=== PATIENT | female | born 1975 | race Caucasian/White ===

== ENCOUNTER 2019-10-27 05:05 | Inpatient (IN) | payer OTHER ==
[2019-10-23 15:05] VITALS: BMI 26.2
[2019-10-27] MEDS ORDERED: VASOPRESSIN 20 UNITS/ML VIAL IV ONE (07:34)
[2019-10-27] MEDS ORDERED: MIDAZOLAM HCL 2 MG/2 ML SINGLE DOSE VIAL ONE ×2 (07:47)
[2019-10-27] MEDS ORDERED: ROPIVACAINE HCL 0.5% 30ML VIAL ONE (07:48)
--- NOTE | 2019-10-27 08:11 | HP ---
Admitting History and Physical - Primary Care Physician PCP: Ramin Ruff - Admission Chief Complaint: for myomectomy with large fibroid History of Present Illness: pelvic ain, menorrhagia History Source: Patient Limitations to Obtaining History: No Limitations - Past Medical History DISC RECORDIST: No: Alzheimer's, CVA, Dementia, Migraine, Multiple Sclerosis, Peripheral Neuropathy, Parkinson's, Seizure, Syncope, TIA, Vertigo, Other Cardiovascular: No: AFIB, Aneurysm, Aortic Insufficiency, Aortic Stenosis, CAD, CHF, Deep Vein Thrombosis, HTN, Hyperlipdemia, PR, Mitral Insufficiency, Mitral Stenosis, Murmur, Pulmonary Hypertension, Other Pulmonary: No: Asthma, Bronchitis, Cancer, COPD, O2 Dependent, Pneumonia, Previously Intubated, Pulmonary Embolus, Pulmonary Fibrosis, Sleep Apnea, Other Gastrointestinal: No: Ascites, Cancer, Constipation, Crohn's Disease, Diverticulitis, Diverticulosis, Esophageal Varices, Gastritis, GERD, GI Bleed, Hemorrhoids, Hiatal Hernia, Inflamatory Bowel Disease, Irritable Bowel Disease, Pancreatitis, Peptic Ulcer Disease, Ulcerative Colitis, Other Hepatobiliary: No: Cirrhosis, Cholelithiasis, Cholecystitis, Choledocholithiasis , Hepatitis A, Hepatitis B, Hepatitis C, Other Renal/: No: Renal Failure, Renal Inusuff, BPH, Cancer, Hematuria, Hemodialysis , Neurogenic Bladder, Renal Calculi, UTI, Other Reproductive: No: Ectopic , Endometriosis, Fibroids, PID, Polycystic Ovary Syndrome, Postmenopausal, Other ...LMP: 10/05/19 ...: No ...Para: 2 Heme/Onc: No: Anemia, B12 Deficiency, Bleeding Disorder, Cancer, Current Chemotherapy, Current Radiation Therapy, Hemochromatosis, Hypercoaguable State, Myeloproliferative Synd, Sickle Cell Disease, Sickle Cell Trait, Thrombocytopenia, Other Infectious Disease: No: AIDS, C-Diff, Herpes Zoster, HIV, MRSA, STD's, Tuberculosis, VREF, Other Psych: No: Addictions, Anxiety, Bipolar, Depression, Panic, Psychosis, Schizophrenia, Other Musculoskeletal: No: Bursitis, Chronic low back pain, Hemiparesis, Hemiplegia, Osteoarthritis, Paraplegia, Other Rheumatology: No: Fibromyalgia, Gout, Lupus, Rheumatoid Arthritis, Sarcoidosis, Vasculitis, Other ENT: No: Allergic Rhinitis, Sinusitis, Other Endocrine: No: York's Disease, Cher's Disease, Diabetes Insipidus, Diabetes Mellitus, Hyperparathyroidism, Hyperthyroidism, Hypothyroidism, Osteopenia, SIADH, Other Dermatology: No: Basal Cell, Cellulitis, Eczema, Melanoma, Psoriasis, Squamous Cell, Other - Past Surgical History Past Surgical History: Yes: - Advance Directives Advance Directives: Yes: Living Will - Smoking History Smoking history: Never smoked Have you smoked in the past 12 months: No - Alcohol/Substance Use Hx Alcohol Use: No History of Substance Use: reports: None - Social History Usual Living Arrangement: Yes: With Significant Other Do you think of yourself as: Straight/Heterosexual ADL: Independent History of Recent Travel: No Home Medications - Allergies Allergies/Adverse Reactions: Allergies Allergy/AdvReac Type Severity Reaction Status Date / Time No Known Allergies Allergy Verified 10/27/19 06:41 - Home Medications Home Medications: Ambulatory Orders Ibuprofen [Motrin Ib] 200 mg PO PRN PRN 10/27/19 Multivit-Min/Folic Acid/Biotin [Hair, Skin & Nails Caplet] 1 each PO DAILY 10/27 Family Medical History Family History: Denies Review of Systems - Review of Systems Constitutional: reports: No Symptoms Eyes: reports: No Symptoms HENT: reports: No Symptoms Neck: reports: No Symptoms Cardiovascular: reports: No Symptoms Respiratory: reports: No Symptoms Gastrointestinal: reports: No Symptoms Genitourinary: reports: No Symptoms Breasts: reports: No Symptoms Reported Musculoskeletal: reports: No Symptoms Integumentary: reports: No Symptoms Neurological: reports: No Symptoms Endocrine: reports: No Symptoms Hematology/Lymphatic: reports: No Symptoms Psychiatric: reports: No Symptoms Physical Examination Vital Signs: Vital Signs Temperature 98.4 F 10/27/19 06:38 Pulse Rate 76 10/27/19 06:38 Respiratory Rate 20 10/27/19 06:38 Blood Pressure 101/67 10/27/19 06:38 O2 Sat by Pulse Oximetry (%) 99 10/27/19 06:37 Constitutional: Yes: Well Nourished, No Distress, Calm Eyes: Yes: WNL, Conjunctiva Clear, EOM Intact HENT: Yes: WNL, Atraumatic, Normocephalic Neck: Yes: WNL, Supple, Trachea Midline Cardiovascular: Yes: WNL, Regular Rate and Rhythm Respiratory: Yes: WNL, Regular, CTA Bilaterally Gastrointestinal: Yes: WNL, Normal Bowel Sounds, Soft ...Rectal Exam: Yes: WNL Renal/: Yes: WNL Breast(s): Yes: WNL Musculoskeletal: Yes: WNL Extremities: Yes: WNL Edema: Yes Edema: LUE: 1+, RUE: 1+, LLE: 1+, RLE: 1+ Peripheral Pulses WNL: Yes Integumentary: Yes: WNL Wound/Incision: Yes: Clean/Dry, Well Approximated Neurological: Yes: WNL, Alert, Oriented ...Motor Strength: WNL Psychiatric: Yes: WNL, Alert, Oriented Assessment/Plan for myomectomy of large fibroid
[2019-10-27] MEDS ORDERED: PROPOFOL 20 ML ONE (08:12)
[2019-10-27] MEDS ORDERED: fentaNYL CITRATE 250 MCG/5 ML VIAL ONE (08:12)
[2019-10-27] MEDS ORDERED: DEXAMETHASONE SOD PHOSPHATE 4 MG/1 ML VIAL ONE ×2 (08:12→10:43)
[2019-10-27] MEDS ORDERED: LIDOCAINE HCL/PF 2% SDV 5ML VIAL ONE (08:12)
[2019-10-27] MEDS ORDERED: KETOROLAC TROMETHAMINE 30 MG/1 ML VIAL ONE (08:12)
[2019-10-27] MEDS ORDERED: ROCURONIUM BROMIDE 50 MG/5 ML SYRINGE ONE (08:12)
[2019-10-27] MEDS ORDERED: ceFAZolin 2 GRAM PREMIX BAG IVPB ONE (08:20)
--- NOTE | 2019-10-27 09:24 | PN ---
Progress Note (short form) - Note Progress Note: I assisted Dr. Ruff at myomectomy for the entirety of the case.
[2019-10-27] MEDS ORDERED: NEOSTIGMINE METHYLSULFATE 0.5 MG/ML - 10 ML MDV ONE (09:28)
[2019-10-27] MEDS ORDERED: GLYCOPYRROLATE 0.2 MG/1 ML VIAL ONE ×3 (09:28→09:29)
[2019-10-27] MEDS ORDERED: ONDANSETRON 4 MG/2 ML VIAL IVPUSH PRN ×2 (09:48→09:49)
[2019-10-27] MEDS ORDERED: PROMETHAZINE HCL 25 MG/1 ML VIAL IVPUSH PRN (09:48)
[2019-10-27] MEDS ORDERED: oxyCODONE HCL 5 MG TABLET PO PRN (09:48)
[2019-10-27] MEDS ORDERED: DEXAMETHASONE SOD PHOSPHATE 4 MG/1 ML VIAL IVPUSH ONE (09:49)
[2019-10-27] MEDS ORDERED: PROMETHAZINE HCL 25 MG/1 ML VIAL IVPB PRN (09:49)
[2019-10-27] MEDS ORDERED: HYDROmorphone *PCA* 10MG/50ML DISP.SYRIN PCA SCH (10:00)
--- NOTE | 2019-10-27 10:17 | OP ---
Operative Note - Note: Operative Date: 10/27/19 Pre-Operative Diagnosis: fibroid, menorrahgia, pelvic pain Operation: open myomectomy Findings: large fibroid posterior fundal part Post-Operative Diagnosis: Same as Pre-op Surgeon: Ramin Ruff Asbestos Shingle Inspector: Michael Low Anesthesiologist/FLAT OPTICAL ELEMENT MAKER: Scottie Tariq Anesthesia: General Specimens Removed: fibroid Estimated Blood Loss (mls): 400 (no complication ) Operative Report Dictated: Yes
[2019-10-27] MEDS ORDERED: PROMETHAZINE HCL 25 MG/1 ML VIAL ONE (10:24)
--- NOTE | 2019-10-27 11:26 | OP ---
DATE OF OPERATION: 10/27/2019 PREOPERATIVE DIAGNOSIS: Fibroid uterus pelvic pain and menorrhagia. POSTOPERATIVE DIAGNOSIS: Fibroid uterus pelvic pain and menorrhagia. Large fibroid uterus 10 x 10 cm size posterior fundal part of the uterus. PROCEDURE: Open myomectomy. SURGEON: Ramin Ruff MD RN PRIOR AUTHORIZATION: Michael Low MD ANESTHESIA: General anesthesia. ANESTHESIOLOGIST: Scottie Tariq MD INDICATIONS: This is a 43-year-old patient with previous history of and has known this fibroid uterus about more than 10 years. Patient has been followed up for this fibroid and patient's symptom finally has become worse with increasing size of the fibroid and the increasing pelvic pain and increasing menorrhagia and the fibroid has been checked by MRI, which was 8 x 8 cm in 2018, has increased in size and the patient finally made a decision because the symptom was intolerable anymore for surgical removal of the fibroid and after all the conservative management has failed. PROCEDURE: Patient was taken to the OR and patient has all the risks, benefits and alternatives explained to the patient and patient insists of no hysterectomy and the patient insisted that if the surgery will be too difficult to sacrifice the uterus, she preferred not to do the procedure and will close her abdomen and she will worry about the hysterectomy in the future date. So this agreement was agreed and we proceeded to the myomectomy today. Patient was placed on the operating table in supine position. After the general anesthesia was obtained, the patient's abdomen and pelvis prepped and draped in the usual sterile manner and the Pfannenstiel incision was made through the skin, subcutaneous tissue until the fascia was nicked in the midline and the fascia extended bilaterally. Intraperitoneal cavity was entered. The bladder was slightly adhesed to the anterior lower transverse segment area, but we see the large fibroid at the posterior fundus part of the uterus, so the uterus was removed outside the abdominal cavity. We put a tourniquet around. We used 4x4 lap pads to create a little tourniquet on the base of the uterus. We took the uterus and the fibroid out the abdominal cavity the fibroid and posterior fundus part of the uterus. So by scoring vertically with the Bovie and then the Bovie went to the uterus serosa and the submucosal tissue. Then we dissected the fibroid out with the Metzenbaum scissors and the uterus fibroid was 10 x 10 cm was shelled out from the uterus. Although the uterine cavity was not entered, but the large fibroid was thin, so we reconstructed the cavity of the uterus after the fibroid was removed and the cavity we put a suture through so the suture probably went to the uterine cavity to obtain good hemostasis. After 3 layers we put figure-of-8 suture. We closed the mucosa of the uterus 3 layers and then the serosa of the uterus was trimmed, reconstructed, to remove excess amount of serosa tissue of the uterus. Good hemostasis was obtained. A lot of figure-of-8 sutures obtained. Interrupted suture was applied to close the serosa area. Good hemostasis. No complication. Patient draining clear urine. INTERCEED was applied on top of the uterine incision site to prevent adhesion in the future. Ovary appeared to be very atrophic and both tubes were within normal limits. Another smaller fibroid when we were taking out the large 10 x 10 cm. Another 3 x 3 fibroid was also removed, which these are intramural type fibroid uterus. Another than that there is another small fibroid. It is about 1 x 1 cm on the anterior fundus part of the uterus, which no need to remove it, it is too small. Other than that no complications with the reconstruction. Good hemostasis. Tolerated the procedure well. Blood loss about 400 mL and draining clear urine. The peritoneum was closed. Fascia was closed. Skin was closed. Transferred to the recovery room in stable condition. MD SAMANTHA GUERIN/[id number]
[2019-10-27] MEDS: CEFAZOLIN 2 GM/D5W 2 GM/50 ML ML IVPB SCH ×2 (17:51→18:04)
[2019-10-27] MEDS ORDERED: CEFAZOLIN 2 GM/D5W 2 GM/50 ML ML IVPB SCH (18:00)
[2019-10-28] MEDS: DEXTROSE 5%-LACTATED RINGERS 1,000 ML IV SCH ×2 (01:25)
[2019-10-28] MEDS: ACETAMINOPHEN 325 MG TABLET (FP) PO PRN ×2 (06:17→10:01)
[2019-10-28] MEDS: IBUPROFEN 600 MG TABLET (FP) PO PRN ×2 (06:17→10:02)
[2019-10-28] MEDS ORDERED: CEFAZOLIN 2 GM/D5W 2 GM/50 ML ML IVPB SCH (08:00)
[2019-10-28] MEDS: CEFAZOLIN 2 GM/D5W 2 GM/50 ML ML IVPB SCH ×2 (08:12→09:24)
[2019-10-28 10:40] VITALS: BP 124/62; PULSE 82; TEMP 98.5
--- NOTE | 2019-10-28 10:51 | PN ---
Progress Note (short form) - Note Progress Note: pod 1, doing well, no fever, will dc pt home for pain mgmt
--- NOTE | 2019-10-28 10:53 | DS ---
Physical Examination Vital Signs: Vital Signs Temperature 98.5 F 10/28/19 10:00 Pulse Rate 82 10/28/19 10:00 Respiratory Rate 20 10/28/19 10:00 Blood Pressure 124/62 10/28/19 10:00 O2 Sat by Pulse Oximetry (%) 100 10/27/19 15:00 Constitutional: Yes: Well Nourished, No Distress, Calm Eyes: Yes: WNL, Conjunctiva Clear, EOM Intact HENT: Yes: WNL, Atraumatic, Normocephalic Neck: Yes: WNL, Supple, Trachea Midline Cardiovascular: Yes: WNL, Regular Rate and Rhythm Respiratory: Yes: WNL, Regular, CTA Bilaterally Gastrointestinal: Yes: WNL, Normal Bowel Sounds, Soft ...Rectal Exam: Yes: WNL Renal/: Yes: WNL Breast(s): Yes: WNL Musculoskeletal: Yes: WNL Extremities: Yes: WNL Edema: No Peripheral Pulses WNL: Yes Integumentary: Yes: WNL Wound/Incision: Yes: Clean/Dry, Well Approximated Neurological: Yes: WNL, Alert, Oriented ...Motor Strength: WNL Psychiatric: Yes: WNL, Alert, Oriented Discharge Summary Problems reviewed: Yes Reason For Visit: FIBROIDS Procedures: Principal: myomectomy Plan of Treatment: pain mgmt Condition: Good - Instructions Diet, Activity, Other Instructions: Dr. tolliver Buffer Machine discharge instructions Physical activity Resume your normal everyday activity as tolerated no heavy lifting or exercise until seen by your surgeon. You may walk unlimited lisa of and climb stairs. You may resume driving the car when you feel safe and comfortable behind the wheel. No sexual activity as instructed by Dr. Grullon. Wound care If you have a bandage, leave it on, and keep dry for 48-72 hours. After that time discard the outer bandage. If they are tapes on the skin under the out of bandage leave them in place. They will peel off in the next 7 to 10 days. Do Not Peel them off. You may shower the day after surgery. If there are tapes present on the skin, you may shower over them. Diet There are no dietary restrictions. Eat healthy, high-fiber foods. Drink 6 to 8 glasses of liquid each day. This will assist in keeping your bowels are regular. Pain management You may take Tylenol or acetaminophen or Ibuprofen (for example, Motrin, Advil etc.) from my pain prescription medication is ordered should be taken as prescribed for moderate to severe pain. Call Dr. tolliver for any of the following: Severe pain not relieved by medication Fever of 101 or higher Excessive bleeding or drainage on dressing Inability to urinate Call the office at [phone] for an appointment in seven days. Disposition: HOME - Home Medications Comprehensive Discharge Medication List: Ambulatory Orders Ibuprofen [Motrin Ib] 200 mg PO PRN PRN 10/27/19 Multivit-Min/Folic Acid/Biotin [Hair, Skin & Nails Caplet] 1 each PO DAILY 10/27
--- NOTE | 2019-10-30 10:17 | PATH ---
Surgical Pathology Report Patient Name: ANÍBAL DARBY [facility]. Rec. #: [id number] /Age/Gender: 1975 (Age: 43) / F Account: [id number] Location: [facility] OBS/PATROL [facility]GE[facility]'S OFFICE Taken: 10/27/2019 Received: 10/27/2019 Reported: 10/30/2019 Physicians: Ramin Ruff MD Specimen(s) Received FIBROIDS Clinical History Fibroids Final Diagnosis FIBROIDS, ABDOMINAL MYOMECTOMY: LEIOMYOMA(TA), EPITHELIOID AND CONVENTIONAL TYPES, WITH FOCAL HEMORRHAGE AND DEGENERATIVE CHANGES. SEE COMMENT. Comment: The largest leiomyoma has epithelioid features, no significant cytologic atypia, focal areas of hemorrhage, infarct type necrosis, myxoid, and degenerative changes. Very rare mitosis is identifed (<1/10 HPF). Immunohistochemical stains performed at [place], [place] ([id number]) and interpreted at [facility] show the neoplasm is positive for desmin, SMA, ER and AR; while negative for CD10, CD117, DOG-1, and BCL-1. The above histomorphology and immunophenotype supports the diagnosis. Positive and negative controls (internal if applicable) show appropriate results. Electronically Signed Bethany Cohen M.D. Gross Description Received in formalin labeled "fibroids," is a 242 g, is a 10.0 x 8.0 x 6.0 cm carlin-pink, rubbery nodule. Sectioning reveals carlin-yellow to orange, fleshy, soft parenchyma with foci of hemorrhage. Separately received within the same container is a 5.5 x 3.3 x 1.4 cm portion of fibrous tissue. Account Contact Associate sections are submitted in 8 cassettes as follows: 1-7-fibroid; 8-separately received fibrous tissue. DL/10/27/2019 saudi/10/27/2019
== END 2019-10-28 13:15 | disposition home or self-care (01) | DRG 519 ==
LOC: EDBD → JSAMEDAYSX 05:05 → EDSTATUS 13:46 → J3W 15:00
PROVIDERS: ADMIT Obstetrics & Gynecology; ATTEND Obstetrics & Gynecology
PROC: 0UB90ZZ Excision of Uterus, Open Approach (ICD-10-PCS; principal; 2019-10-27 08:00)
DX: D25.1 Intramural leiomyoma of uterus (principal); D25.0 Submucous leiomyoma of uterus; N92.0 Excessive and frequent menstruation with regular cycle; R10.2 Pelvic and perineal pain
CPT/HCPCS: 36415; 84703; 86850; 86900; 86901; 88305-TC; 94760